=== PATIENT | male | born 1995 | race Caucasian/White ===

== ENCOUNTER 2018-11-01 21:32 | Emergency (ER) | payer BC ==
--- NOTE | 2018-11-01 21:41 | EDM.PDOC ---
ED HPI GENERAL MEDICAL PROBLEM - General Chief Complaint: Upper Extremity Injury/Pain Stated Complaint: DISLOCATED SHOULDER Time Seen by Provider: 11/01/18 21:38 - History of Present Illness INITIAL COMMENTS - FREE TEXT/NARRATIVE: HISTORY AND PHYSICAL: History of present illness: Patient's 23-year-old white male with history of recurrent shoulder dislocation presents status post fall with a dislocation of his right shoulder. He denies other trauma or concern he denies any head or neck pain or trauma Review of systems: As per history of present illness and below otherwise all systems reviewed and negative. Past medical history: As per history of present illness and as reviewed below otherwise noncontributory. Surgical history: As per history of present illness and as reviewed below otherwise noncontributory. Social history: No reported history of drug or alcohol abuse. Family history: As per history of present illness and as reviewed below otherwise noncontributory. Physical exam: HEENT: Atraumatic, normocephalic, pupils reactive, negative for conjunctival pallor or scleral icterus, mucous membranes moist, throat clear, neck supple, nontender, trachea midline. Lungs: Clear to auscultation, breath sounds equal bilaterally, chest nontender. Heart: S1S2, regular, negative for clicks, rubs, or JVD. Abdomen: Soft, nondistended, nontender. Negative for masses or hepatosplenomegaly. Negative for costovertebral tenderness. Pelvis: Stable nontender. Genitourinary: Deferred. Rectal: Deferred. Extremities: Limited range of motion with before meals step-off consistent with subluxation Neuro: Awake, alert, oriented. Cranial nerves II through XII unremarkable. Cerebellum unremarkable. Motor and sensory unremarkable throughout. Exam nonfocal. Diagnostics: Status post reduction right shoulder x-ray Therapeutics: with traction countertraction subluxation was reduced successfully patient has resolution with full range of motion CMS neurovascular exam are normal status post Sling Impression: #1 right shoulder subluxation status post reduction Definitive disposition and diagnosis as appropriate pending reevaluation and review of above. Review of Systems - Review of Systems Review Of Systems: ROS reveals no pertinent complaints other than HPI. ED EXAM, GENERAL - Physical Exam Exam: See Below (See dictation) Departure - Departure Time of Disposition: 21:40 Disposition: Home, Self-Care 01 Condition: Good Clinical Impression: Shoulder dislocation - Discharge Information Referrals: PCP,None [Primary Care Provider] - Additional Instructions: The following information is given to patients seen in the emergency department who are being discharged to home. This information is to outline your options for follow-up care. We provide all patients seen in our emergency department with a follow-up referral. The need for follow-up, as well as the timing and circumstances, are variable depending upon the specifics of your emergency department visit. If you don't have a primary care physician on staff, we will provide you with a referral. We always advise you to contact your personal physician following an emergency department visit to inform them of the circumstance of the visit and for follow-up with them and/or the need for any referrals to a consulting specialist. The emergency department will also refer you to a specialist when appropriate. This referral assures that you have the opportunity for followup care with a specialist. All of these measure are taken in an effort to provide you with optimal care, which includes your followup. Under all circumstances we always encourage you to contact your private physician who remains a resource for coordinating your care. When calling for followup care, please make the office aware that this follow-up is from your recent emergency room visit. If for any reason you are refused follow-up, please contact the [facility] emergency department at and asked to speak to the emergency department charge nurse. KELI [facility] Specialty Care - Orthopedic Clinic Professional Building [address] [place] [address], [address] [place] [address] Sling as directed Motrin/Tylenol obstructive follow-up orthopedic surgery as discussed return as needed as discussed
--- NOTE | 2018-11-01 22:15 | CR ---
Indication: Shoulder pain Technique: Frontal view right shoulder Comparison: None Findings/Impression: No acute fracture, subluxation, or suspicious osseous lesion. Visualized portions of the right lung are clear. Dictated by Abida See MD @ Nov 01 2018 10:14PM Signed by Dr. Abida See @ Nov 01 2018 10:14PM
== END 2018-11-01 22:12 | disposition home or self-care (01) ==
LOC: MW.ED 21:32
DX: S43.001A Unspecified subluxation of right shoulder joint, initial encounter (principal); W18.39XA Other fall on same level, initial encounter
CPT/HCPCS: 23650; 73020-26-RT; 73020-RT; 99283; 99283-25